=== PATIENT | female | born 1985 | race Asian ===

== ENCOUNTER 2016-08-27 15:43 | Inpatient (IN) | payer BC ==
[2016-08-27] MEDS ORDERED: FAMOTIDINE 20 MG/50 ML IVPB 50 ML IVPB ONE ×3 (16:57→19:56)
[2016-08-27] MEDS ORDERED: MAG HYDROX/AL HYDROX/SIMETH 30 ML UNIT-DOSE CUP PO ONE (16:57)
[2016-08-27] MEDS ORDERED: SODIUM CHLORIDE 1,000 ML IV STA (16:57)
--- NOTE | 2016-08-27 17:28 | PDOC ---
History of Present Illness - General History Source: Patient Exam Limitations: No Limitations <Hussain Douglass - Last Filed: 08/27/16 19:45> - General History Source: Patient Exam Limitations: No Limitations - History of Present Illness Initial Comments: 08/27/16 17:28 The patient is a 31 year old female, with no significant past medical history, who presents to the emergency department with abdominal pain and vomiting onset 3 days ago. She describes the pain as localized in the epigastric region, without radiation or modifying factors. She notes that she has been taking Tums and Zantac during this time frame with minimal relief of her symptoms. She states that she went to the ED when the pain started and was diagnosed with multiple gallstones via Ultrasound but no infection was noted. She followed up with her PMD, who referred her to a GI specialist. After consulting with the GI specialist, she was advised to come to the ED for further evaluation. She describes her vomit as nonbilious and nonbloody. She states that her appetite has been poor during this time frame and has lost 12 pounds over the last couple of days. She notes that she is currently breast feeding her 5 month old child. The patient denies chest pain, shortness of breath, headache and dizziness. Denies fever, chills, diarrhea and constipation. Denies dysuria, frequency, urgency and hematuria. 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 Agrawal <Alfonzo Johnson - Last Filed: 08/27/16 19:53> - General Chief Complaint: Pain, Acute Stated Complaint: ABD PAIN Time Seen by Provider: 08/27/16 16:35 Past History - Past Medical History Asthma: No Cancer: No Cardiac Disorders: No Diabetes: No HTN: No Seizures: No Thyroid Disease: No - Immunization History Immunization Up to Date: Yes - Psycho/Social/Smoking Cessation Hx Suicidal Ideation: No Smoking Status: No Smoking History: Never smoked Have you smoked in the past 12 months: No Number of Cigarettes Smoked Daily: 0 Hx Alcohol Use: No Drug/Substance Use Hx: No Substance Use Type: None Hx Substance Use Treatment: No <Hussain Douglass - Last Filed: 08/27/16 19:45> <Alfonzo Johnson - Last Filed: 08/27/16 19:53> - Past Medical History Allergies/Adverse Reactions: Allergies Allergy/AdvReac Type Severity Reaction Status Date / Time No Known Allergies Allergy Verified 08/27/16 15:53 Home Medications: Ambulatory Orders Vit/Iron Fumarate/FA [ Tablet] 1 each PO DAILY 03/11/16 Docusate Sodium [Colace -] 100 mg PO BID PRN #60 capsule 03/15/16 Oxycodone HCl/Acetaminophen [Percocet 5-325 mg Tablet -] 1 - 2 tab PO Q6H #30 tab MDD 6 03/15/16 Review of Systems - Review of Systems Able to Perform ROS?: Yes Comments:: 08/27/16 17:29 GENERAL/CONSTITUTIONAL: No fever or chills. No weakness. HEAD, EYES, EARS, NOSE AND THROAT: No change in vision. No ear pain or discharge. No sore throat. CARDIOVASCULAR: No chest pain or shortness of breath RESPIRATORY: No cough, wheezing, or hemoptysis. GASTROINTESTINAL: +Abdominal pain, nausea and vomiting. No diarrhea or constipation. GENITOURINARY: No dysuria, frequency, or change in urination. MUSCULOSKELETAL: No joint or muscle swelling or pain. No neck or back pain. SKIN: No rash NEUROLOGIC: No headache, vertigo, loss of consciousness, or change in strength/ sensation. ENDOCRINE: No increased thirst. No abnormal weight change HEMATOLOGIC/LYMPHATIC: No anemia, easy bleeding, or history of blood clots. ALLERGIC/IMMUNOLOGIC: No hives or skin allergy. <Alfonzo Johnson - Last Filed: 08/27/16 19:53> *Physical Exam - Vital Signs Last Vital Signs Temp Pulse Resp BP Pulse Ox 98.0 F 60 20 107/66 100 08/27/16 15:48 08/27/16 15:48 08/27/16 15:48 08/27/16 15:48 08/27/16 15:48 <Hussain Douglass - Last Filed: 08/27/16 19:45> - Vital Signs Last Vital Signs Temp Pulse Resp BP Pulse Ox 98.0 F 60 20 107/66 100 08/27/16 15:48 08/27/16 15:48 08/27/16 15:48 08/27/16 15:48 08/27/16 15:48 - Physical Exam Comments: 08/27/16 17:29 GENERAL: Awake, alert, and fully oriented, in no acute distress HEAD: No signs of trauma, normocephalic, atraumatic EYES: PERRLA, EOMI, sclera anicteric, conjunctiva clear ENT: Auricles normal inspection, hearing grossly normal, nares patent, oropharynx clear without exudates. Moist mucosa NECK: Normal ROM, supple, no lymphadenopathy, JVD, or masses LUNGS: No distress, speaks full sentences, clear to auscultation bilaterally HEART: Regular rate and rhythm, normal S1 and S2, no murmurs, rubs or gallops, peripheral pulses normal and equal bilaterally. ABDOMEN: Soft, nontender, normoactive bowel sounds. No guarding, no rebound. No masses EXTREMITIES: Normal inspection, Normal range of motion, no edema. No clubbing or cyanosis. NEUROLOGICAL: Cranial nerves II through XII grossly intact. Normal speech, normal gait, no focal sensorimotor deficits SKIN: Warm, Dry, normal turgor, no rashes or lesions noted. <Alfonzo Johnson - Last Filed: 08/27/16 19:53> ED Treatment Course - LABORATORY CBC & Chemistry Diagram: 08/27/16 17:35 08/27/16 17:35 - RADIOLOGY Radiology Studies Ordered: Category Date Time Status ABDOMEN US -LIMITED [US] Stat Ultrasound 08/27/16 16:57 Ordered <Hussain Douglass - Last Filed: 08/27/16 19:45> - LABORATORY CBC & Chemistry Diagram: 08/27/16 17:35 08/27/16 17:35 - RADIOLOGY Radiograph Interpretation: 08/27/16 18:48 Abdominal ultrasound Reviewed by: Dr. Hernandez Bradley Impression: Cholelithiasis <Alfonzo Johnson - Last Filed: 08/27/16 19:53> Medical Decision Making - Medical Decision Making 08/27/16 17:34 A portion of this note was documented by scribe services under my direction. I have reviewed the details of the note, within reason, and agree with the documentation with the following case summary and management plan written by me. Patient treated in the ED. Nursing notes are reviewed and incorporated into the medical decision-making. Vital signs reviewed. Peripheral IV access obtained by the nurse, laboratory studies are drawn and sent, reviewed and interpreted by myself. Vital Signs Temp Pulse Resp BP Pulse Ox 98.0 F 60 20 107/66 100 08/27/16 15:48 08/27/16 15:48 08/27/16 15:48 08/27/16 15:48 08/27/16 15:48 31-year-old female with no past medical history presents to the emergency department for persistent upper abdominal pain. The patient reports 3 days ago, she developed this severe epigastric pain with associated nausea and vomiting and poor appetite. The patient was seen at [facility] where she had an EKG, troponin, blood work and ultrasound performed. Her ultrasound demonstrated multiple gallstones but not acute cholecystitis. Patient is discharged as gastritis. Patient has been taking perpetual H2-blockers and PPIs and Maalox with no relief. Patient reports inability to tolerate by mouth persistent vomiting. Patient has seen her PMD referred her to a die repair machinist Dr. Agrawal. Dr. Agrawal had a value the patient and sent the patient to the ER for further evaluation. Differential includes again acute cholecystitis, duodenal or gastric ulcer, gastritis, esophageal reflux. We'll consult Dr. Agrawal once results return. 08/27/16 19:46 CBC, BMP 08/27/16 17:35 08/27/16 17:35 CMP Sodium 140 mmol/L (136-145) 08/27/16 17:35 Potassium 4.4 mmol/L (3.5-5.1) 08/27/16 17:35 Chloride 103 mmol/L (98-107) 08/27/16 17:35 Carbon Dioxide 27 mmol/L (21-32) 08/27/16 17:35 Anion Gap 10 (8-16) 08/27/16 17:35 BUN 5 mg/dL (7-18) L 08/27/16 17:35 Creatinine 0.7 mg/dL (0.55-1.02) D 08/27/16 17:35 Creat Clearance w eGFR > 60 (>60) 08/27/16 17:35 Random Glucose 82 mg/dL (74-106) 08/27/16 17:35 Calcium 9.1 mg/dL (8.5-10.1) 08/27/16 17:35 Total Bilirubin 0.9 mg/dL (0.2-1.0) D 08/27/16 17:35 AST 144 U/L (15-37) H D 08/27/16 17:35 ALT 185 U/L (12-78) H D 08/27/16 17:35 Alkaline Phosphatase 156 U/L (45-117) H D 08/27/16 17:35 Creatine Kinase 164 IU/L (26-192) 08/27/16 17:35 CK-MB (CK-2) < 1.000 ng/ml (0.5-3.6) 08/27/16 17:35 Troponin I < 0.02 ng/ml (0.00-0.05) 08/27/16 17:35 Total Protein 7.9 g/dl (6.4-8.2) 08/27/16 17:35 Albumin 4.0 g/dl (3.4-5.0) 08/27/16 17:35 Lipase 99 U/L (73-393) 08/27/16 17:35 Serum , Qual Negative 08/27/16 17:35 LFTs are now elevated. Ultrasound was reviewed. Demonstrates cholelithiasis but no acute cholecystitis. Common bile duct is normal. However, given elevated LFTs , or as her paperwork from [facility] demonstrated LFTs in the 70s, choledocholithiasis should be concerning. Case was discussed with Dr. Agrawal who will follow up with the patient as an inpatient. Case discussed with Dr. Ambrosio which is the patient to medical surgical admission for rule out choledocholithiasis. Case discussed in detail with admitting physician including history, physical exam and ancillary studies. Admitting physician has assumed care for the patient, will follow all pending diagnostics and will complete the evaluation and treatment. <Hussain Douglass - Last Filed: 08/27/16 19:45> - Medical Decision Making 08/27/16 19:45 Dr. Agrawal was called regarding the patient at 7:15pm Dr. Agrawal was consulted regarding the patient at 7:16pm [phone] <Alfonzo Johnson - Last Filed: 08/27/16 19:53> *DC/Admit/Observation/Transfer - Discharge Dispostion Admit: Yes <Hussain Douglass - Last Filed: 08/27/16 19:45> - Attestations Scribe Attestion: 08/27/16 17:32 Documentation prepared by Alfonzo Johnson, acting as medical billing service for Hussain Douglass MD <Alfonzo Johnson - Last Filed: 08/27/16 19:53> Diagnosis at time of Disposition: Elevated LFTs Cholelithiasis Qualifiers: Cholelithiasis location: other site Biliary obstruction: without biliary obstruction Qualified Code(s): K80.80 - Other cholelithiasis without obstruction - Referrals Referrals: Brannon Hurst MD [Primary Care Provider] -
[2016-08-27] MEDS ORDERED: MAG HYDROX/AL HYDROX/SIMETH 30 ML UNIT-DOSE CUP ONE (17:39)
[2016-08-27 17:46] LABS: BASOPHIL 0.6 % (0-2.0); EOSINOPHIL 1.1 % (0-4.5); MCH 29.4 pg (25.7-33.7); MCHC 33.5 g/dl (32.0-36.0); MEAN CELL VOLUME 87.8 fl (80-96); MEAN PLT VOLUME 8.3 fl (7.5-11.1); NEUTROPHILS 70.7 % (42.8-82.8); PLATELET COUNT 313 K/MM3 (134-434); RDW 13.3 % (11.6-15.6); WHITE BLOOD COUNT 7.8 K/mm3 (4.0-10.0)
[2016-08-27 18:03] LABS: URINE APPEARANCE CLEAR; URINE BILIRUBIN NEGATIVE (NEGATIVE); URINE BLOOD NEGATIVE (NEGATIVE); URINE COLOR YELLOW; URINE GLUCOSE (UA) NEGATIVE (NEGATIVE); URINE KETONE NEGATIVE (NEGATIVE); URINE LEUK ESTERASE NEGATIVE (NEGATIVE); URINE NITRITE NEGATIVE (NEGATIVE); URINE PROTEIN NEGATIVE (NEGATIVE); URINE UROBILINOGEN NEGATIVE E.U./dl (0.2-1.0)
[2016-08-27 18:17] LABS: ANION GAP 10 (8-16); BILIRUBIN,TOTAL 0.9 mg/dL (0.2-1.0); CALCIUM 9.1 mg/dL (8.5-10.1); CO2 27 mmol/L (21-32); CREATININE 0.7 mg/dL (0.55-1.02); GLUCOSE,RANDOM 82 mg/dL (74-106); SGOT/AST 144 U/L (15-37); SGPT/ALT 185 U/L (12-78); TOT PROT 7.9 g/dl (6.4-8.2)
[2016-08-27 18:19] LABS: ALK PHOS 156 U/L (45-117); TROPONIN I < 0.02 ng/ml (0.00-0.05)
--- NOTE | 2016-08-27 19:43 | PN ---
<Desire Cummings - Last Filed: 08/27/16 23:13> Teaching Attending Note ATTENDING PHYSICIAN STATEMENT I saw and evaluated the patient. I reviewed the resident's note and discussed the case with the resident. I agree with the resident's findings and plan as documented. SUBJECTIVE: 31 yo F presents with abdominal pain and vomiting for 3 days. Patient reports the abdominal pain is in her epigastric region and does not radiate. Patient was recently diagnosed with gallstones and was told to report to [place] ED from her GI specialist. Patient states her pain worsens about an hour after she eats and reports that she forced herself to throw up to relieve her abdominal pain. Patient denies blood in vomit and blood in stool. Patient notes she had a 5 months ago and is still . Pt reports she was unable to complete MRI due to claustrophobia. Denies: chest pain, shortness of breath, headache and dizziness. Denies fever, chills, diarrhea and constipation. Denies dysuria, frequency, urgency and hematuria. 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 Agrawal OBJECTIVE: Last Vital Signs Temp Pulse Resp BP Pulse Ox 98.0 F 60 20 107/66 100 08/27/16 15:48 08/27/16 15:48 08/27/16 15:48 08/27/16 15:48 08/27/16 15:48 GENERAL: Awake, alert, and fully oriented, in no acute distress HEENT: Atraumatic. PERRLA, EOMI. Moist mucosa. No JVD LUNGS: No distress, speaks full sentences, clear to auscultation bilaterally HEART: Regular rate and rhythm, normal S1 and S2, no murmurs, rubs or gallops, peripheral pulses normal and equal bilaterally. ABDOMEN: Soft, nontender, normoactive bowel sounds. No guarding, no rebound. No masses. McBurney sign negative Colbert sign negative. EXTREMITIES: Normal inspection, Normal range of motion, no edema. No clubbing or cyanosis. NEUROLOGICAL: Cranial nerves II through XII grossly intact. Normal speech, no focal sensorimotor deficits SKIN: Warm, Dry, normal turgor, no rashes or lesions noted. CBCD WBC 7.8 K/mm3 (4.0-10.0) 08/27/16 17:35 RBC 4.53 M/mm3 (3.60-5.2) D 08/27/16 17:35 Hgb 13.3 GM/dL (10.7-15.3) D 08/27/16 17:35 Hct 39.7 % (32.4-45.2) D 08/27/16 17:35 MCV 87.8 fl (80-96) 08/27/16 17:35 MCHC 33.5 g/dl (32.0-36.0) 08/27/16 17:35 RDW 13.3 % (11.6-15.6) 08/27/16 17:35 Plt Count 313 K/MM3 (134-434) D 08/27/16 17:35 MPV 8.3 fl (7.5-11.1) 08/27/16 17:35 CMP Sodium 140 mmol/L (136-145) 08/27/16 17:35 Potassium 4.4 mmol/L (3.5-5.1) 08/27/16 17:35 Chloride 103 mmol/L (98-107) 08/27/16 17:35 Carbon Dioxide 27 mmol/L (21-32) 08/27/16 17:35 Anion Gap 10 (8-16) 08/27/16 17:35 BUN 5 mg/dL (7-18) L 08/27/16 17:35 Creatinine 0.7 mg/dL (0.55-1.02) D 08/27/16 17:35 Creat Clearance w eGFR > 60 (>60) 08/27/16 17:35 Calcium 9.1 mg/dL (8.5-10.1) 08/27/16 17:35 Total Bilirubin 0.9 mg/dL (0.2-1.0) D 08/27/16 17:35 AST 144 U/L (15-37) H D 08/27/16 17:35 ALT 185 U/L (12-78) H D 08/27/16 17:35 Alkaline Phosphatase 156 U/L (45-117) H D 08/27/16 17:35 Total Protein 7.9 g/dl (6.4-8.2) 08/27/16 17:35 Albumin 4.0 g/dl (3.4-5.0) 08/27/16 17:35 Documentation prepared by Desire Cummings, acting as medical terminologist for Anne Marie Ambrosio M.D. <Anne Marie Ambrosio - Last Filed: 08/28/16 03:26> Teaching Attending Note Name of Resident: Matt Mares Problem List - Problems (1) Abdominal pain Assessment/Plan: R/o Acute Cholecystitis and choledocholithiasis GI consult Dr Agrawal Protonix 40mg ivpb daily Code(s): R10.9 - UNSPECIFIED ABDOMINAL PAIN (2) Cholelithiasis Assessment/Plan: NPO IVF MRCP, patient unable to complete without some sedation Fentanyl 0.5mg/kg and metoprolol 2.5mg IVPB before procedure. Patient currently breast feeding and so choice of anxiolytics limited. Tylenol IVPB or suppository for severe pain Surgery consult Dr Lloyd Code(s): K80.20 - CALCULUS OF GALLBLADDER W/O CHOLECYSTITIS W/O OBSTRUCTION Qualifiers: Cholelithiasis location: other site Biliary obstruction: without biliary obstruction Qualified Code(s): K80.80 - Other cholelithiasis without obstruction
--- NOTE | 2016-08-27 19:51 | CONSULT ---
Consult Consult Specialty:: Surgery Reason for Consultation:: cholelithiasis - History of Present Illness Chief Complaint: abdominal pain History of Present Illness: 31 y/o F w/no PMH presents to ER after being sent in by Dr. Agrawal for further evaluation of abdominal pain. Pt began to have abdominal pain 1.5 weeks ago that was brought on by eating. After 30 min to 1 hour after eating pt would get severe mid sternal chest pain. At this time she went to ER at [facility] where she was found to cholelithiasis and no cardiac issues. She then saw her PCP Dr. Hurst after the hospital visit who recommended she see Dr. Agrawal. One week had passed in b/w her PCP appointment and Dr. Agrawal's appointment in which she continued to have the same symptoms of pain in epigastric/sternal pain after eating. Day after seeing Dr. Agrawal she came into ER as recommended by Dr. Agrawal. Pt has been vomiting after eating, no blood, mostly food products and has had a 12 pound weight loss in 1-1.5 weeks due to vomiting and poor appetite. She states she had some severe epigastric pain in the last 5-6 months but it was relieved with TUMS or zantac. This time pain was not relieved with TUMS or zantac. Pt also describes the pain as radiating to her L back from her sternum after eating. She denies fevers, chills , SOB, dysuria, generalized swelling, diarrhea. She is currently her 5 month old baby. - History Source History Provided By: Patient - Past Medical History Hepatobiliary: Yes: Cholelithiasis ...LMP: 08/23/16 - Past Surgical History Past Surgical History: Yes: - Alcohol/Substance Use Hx Alcohol Use: No History of Substance Use: reports: None - Smoking History Smoking history: Never smoked Have you smoked in the past 12 months: No Aproximately how many cigarettes per day: 0 - Social History History of Recent Travel: No Home Medications - Allergies Allergies/Adverse Reactions: Allergies Allergy/AdvReac Type Severity Reaction Status Date / Time No Known Allergies Allergy Verified 08/27/16 15:53 - Home Medications Home Medications: Ambulatory Orders [id number]/Iron Fumarate/FA/Dss [ 19 Tablet] 1 each PO DAILY 08/28/16 Review of Systems - Review of Systems Cardiovascular: reports: No Symptoms Respiratory: reports: No Symptoms Gastrointestinal: reports: Abdominal Pain Pain Intensity: 4 Physical Exam Vital Signs: Vital Signs Temperature 98.0 F 08/27/16 15:48 Pulse Rate 60 08/27/16 15:48 Respiratory Rate 20 08/27/16 15:48 Blood Pressure 107/66 08/27/16 15:48 O2 Sat by Pulse Oximetry (%) 100 08/27/16 15:48 Constitutional: Yes: Well Nourished Eyes: Yes: Conjunctiva Clear HENT: Yes: Normocephalic Neck: Yes: Supple Cardiovascular: Yes: Regular Rate and Rhythm Respiratory: Yes: CTA Bilaterally Gastrointestinal: Yes: Soft, Tenderness, Epigastrium (mild) ...Rectal Exam: Yes: Deferred Renal/: Yes: WNL Extremities: Yes: WNL Neurological: Yes: Alert, Oriented Labs: CBC, BMP 08/27/16 17:35 08/27/16 17:35 Abnormal Lab Results 08/27/16 08/27/16 08/28/16 17:35 20:14 06:00 INR 1.15 H PTT (Actin FS) 41.6 H D Chloride BUN 5 L Random Glucose AST 144 H D ALT 185 H D Alkaline Phosphatase 156 H D 08/28/16 06:00 INR PTT (Actin FS) Chloride 108 H BUN 6 L Random Glucose 67 L AST 78 H D ALT 174 H Alkaline Phosphatase 153 H Imaging - Results Ultrasound: Report Reviewed, Image Reviewed Assessment/Plan Low grade acute cholecystitis with cholelithiasis, possibel choledocholithiasis Agree with MRCP to r/o CBC stone Recommend cholecystectomy prior to discharge.
[2016-08-27 20:41] LABS: INR 1.12 (0.82-1.09); PROTHROMBIN TIME (PATIENT) 12.3 SEC (9.98-11.88)
[2016-08-27 20:43] LABS: ACTIVATED PTT 41.6 SECONDS (26.9-34.4)
--- NOTE | 2016-08-27 22:12 | HP ---
CHIEF COMPLAINT: Cholelithiasis PCP: Dr. Hurst; GI: Dr. Agrawal HISTORY OF PRESENT ILLNESS: 31 y/o F w/no PMH presents to ER after being sent in by Dr. Agrawal for further evaluation of abdominal pain. Pt began to have abdominal pain 1.5 weeks ago that was brought on by eating. After 30 min to 1 hour after eating pt would get severe mid sternal chest pain. At this time she went to ER at [facility] where she was found to cholelithiasis and no cardiac issues. She then saw her PCP Dr. Hurst after the hospital visit who recommended she see Dr. Agrawal. One week had passed in b/w her PCP appointment and Dr. Agrawal's appointment in which she continued to have the same symptoms of pain in epigastric/sternal pain after eating. Day after seeing Dr. Agrawal she came into ER as recommended by Dr. Agrawal. Pt has been vomiting after eating, no blood, mostly food products and has had a 12 pound weight loss in 1-1.5 weeks due to vomiting and poor appetite. She states she had some severe epigastric pain in the last 5-6 months but it was relieved with TUMS or zantac. This time pain was not relieved with TUMS or zantac. Pt also describes the pain as radiating to her L back from her sternum after eating. She denies fevers, chills , SOB, dysuria, generalized swelling, diarrhea. She is currently her 5 month old baby. Pt was set for MRCP but due to claustrophobia was unable to be done. She states that will try fentanyl and lopressor in AM and try MRCP again. Pt was told to discard breast milk for the next 24 hours after receiving meds. ER course was notable for: (1) pepcid, mylanta (2) (3) PAST MEDICAL HISTORY: no PMH PAST SURGICAL HISTORY: x2 Social History: Smoking: denies Alcohol: denies Drugs: denies Family History: Mother, Father both "hyperglycemic" Allergies No Known Allergies Allergy (Verified 08/27/16 15:53) HOME MEDICATIONS: Home Medications Medication Instructions Recorded Vit/Iron Fumarate/FA 1 each PO DAILY 03/11/16 [ Tablet] Docusate Sodium [Colace -] 100 mg PO BID PRN #60 capsule 03/15/16 Oxycodone HCl/Acetaminophen 1 - 2 tab PO Q6H #30 tab MDD 6 03/15/16 [Percocet 5-325 mg Tablet -] REVIEW OF SYSTEMS CONSTITUTIONAL: weight loss, loss of appetite Absent: fever, chills, diaphoresis, generalized weakness, malaise HEENT: Absent: rhinorrhea, nasal congestion, throat pain, throat swelling, difficulty swallowing, mouth swelling, ear pain, eye pain, visual changes CARDIOVASCULAR: sternal pain Absent: syncope, palpitations, irregular heart rate, lightheadedness, peripheral edema RESPIRATORY: Absent: cough, shortness of breath, dyspnea with exertion, orthopnea, wheezing, stridor, hemoptysis GASTROINTESTINAL: abd pain, nausea, vomiting Absent: abdominal distension, nausea, constipation, melena, hematochezia GENITOURINARY: Absent: dysuria, frequency, urgency, hesitancy, hematuria, flank pain, genital pain MUSCULOSKELETAL: Absent: myalgia, arthralgia, joint swelling, back pain, neck pain SKIN: Absent: rash, itching, pallor HEMATOLOGIC/IMMUNOLOGIC: Absent: easy bleeding, easy bruising, lymphadenopathy, frequent infections ENDOCRINE: Absent: unexplained weight gain, unexplained weight loss, heat intolerance, cold intolerance NEUROLOGIC: Absent: headache, focal weakness or paresthesias, dizziness, unsteady gait, seizure, mental status changes, bladder or bowel incontinence PSYCHIATRIC: Absent: anxiety, depression, suicidal or homicidal ideation, hallucinations. PHYSICAL EXAMINATION GENERAL: Awake, alert, and fully oriented, in no acute distress. HEAD: Normal with no signs of trauma. EYES: extraocular movements intact, sclera anicteric, conjunctiva clear. No lid lag. EARS, NOSE, THROAT: Ears normal, nares patent, Moist mucous membranes. NECK: Normal range of motion, supple without lymphadenopathy, JVD, or masses. LUNGS: Breath sounds equal, clear to auscultation bilaterally. No wheezes, and no crackles. No accessory muscle use. HEART: Regular rate and rhythm, normal S1 and S2 without murmur, rub or gallop. ABDOMEN: Soft, nontender , murphys sign negative, not distended, normoactive bowel sounds, no guarding, no rebound, no masses. No hepatomegaly or splenomegaly. MUSCULOSKELETAL: Normal range of motion at all joints. No bony deformities or tenderness. No CVA tenderness. LOWER EXTREMITIES: 2+ pulses, warm, well-perfused. No calf tenderness. No peripheral edema. NEUROLOGICAL: Normal speech. Gait not observed. PSYCHIATRIC: Cooperative. Good eye contact. Appropriate mood and affect. SKIN: Warm, dry, normal turgor, no rashes or lesions noted, normal capillary refill. CBCD WBC 7.8 K/mm3 (4.0-10.0) 08/27/16 17:35 RBC 4.53 M/mm3 (3.60-5.2) D 08/27/16 17:35 Hgb 13.3 GM/dL (10.7-15.3) D 08/27/16 17:35 Hct 39.7 % (32.4-45.2) D 08/27/16 17:35 MCV 87.8 fl (80-96) 08/27/16 17:35 MCHC 33.5 g/dl (32.0-36.0) 08/27/16 17:35 RDW 13.3 % (11.6-15.6) 08/27/16 17:35 Plt Count 313 K/MM3 (134-434) D 08/27/16 17:35 MPV 8.3 fl (7.5-11.1) 08/27/16 17:35 CMP Sodium 140 mmol/L (136-145) 08/27/16 17:35 Potassium 4.4 mmol/L (3.5-5.1) 08/27/16 17:35 Chloride 103 mmol/L (98-107) 08/27/16 17:35 Carbon Dioxide 27 mmol/L (21-32) 08/27/16 17:35 Anion Gap 10 (8-16) 08/27/16 17:35 BUN 5 mg/dL (7-18) L 08/27/16 17:35 Creatinine 0.7 mg/dL (0.55-1.02) D 08/27/16 17:35 Creat Clearance w eGFR > 60 (>60) 08/27/16 17:35 Random Glucose 82 mg/dL (74-106) 08/27/16 17:35 Calcium 9.1 mg/dL (8.5-10.1) 08/27/16 17:35 Total Bilirubin 0.9 mg/dL (0.2-1.0) D 08/27/16 17:35 AST 144 U/L (15-37) H D 08/27/16 17:35 ALT 185 U/L (12-78) H D 08/27/16 17:35 Alkaline Phosphatase 156 U/L (45-117) H D 08/27/16 17:35 Total Protein 7.9 g/dl (6.4-8.2) 08/27/16 17:35 Albumin 4.0 g/dl (3.4-5.0) 08/27/16 17:35 CARDIAC ENZYMES Creatine Kinase 164 IU/L (26-192) 08/27/16 17:35 Troponin I < 0.02 ng/ml (0.00-0.05) 08/27/16 17:35 Laboratory Tests 08/27/16 08/27/16 17:35 17:35 Lipase 99 Serum , Qual Negative Urine Test Results Urine Color Yellow 08/27/16 17:35 Urine Appearance Clear 08/27/16 17:35 Urine pH 8.0 (5.0-8.0) D 08/27/16 17:35 Ur Specific [place] 1.013 (1.001-1.035) 08/27/16 17:35 Urine Protein Negative (NEGATIVE) 08/27/16 17:35 Urine Glucose (UA) Negative (NEGATIVE) 08/27/16 17:35 Urine Ketones Negative (NEGATIVE) 08/27/16 17:35 Urine Blood Negative (NEGATIVE) 08/27/16 17:35 Urine Nitrite Negative (NEGATIVE) 08/27/16 17:35 Urine Bilirubin Negative (NEGATIVE) 08/27/16 17:35 Ur Leukocyte Esterase Negative (NEGATIVE) 08/27/16 17:35 Imaging: U/S abd: 08/27/16 - Multiple small gallbladder calculi are identified. The gallbladder otherwise appears unremarkable. No pericholecystic fluid is seen. Early acute cholecystitis may not be demonstrable on sonography or CT. Active Medications Acetaminophen (Ofirmev Injection -) 1,000 mg IVPB Q6H PRN PRN Reason: FEVER OR PAIN Stop: 08/28/16 17:51 Sodium Chloride (Normal Saline -) 1,000 mls @ 100 mls/hr IV ASDIR SINAN Pantoprazole Sodium 40 mg/ (Sodium Chloride) 100 mls @ 200 mls/hr IVPB DAILY SINAN Metoprolol Tartrate (Lopressor Injection -) 2.5 mg IVPUSH ONCE ONE Stop: 08/28/16 06:01 ASSESSMENT/PLAN: 31 y/o F w/no PMH presents to ER after being sent in by Dr. Agrawal for further evaluation of abdominal pain. Found to have cholelithiasis. -Abdominal pain secondary to cholelithiasis -NS @ 100ml/hr -NPO -MRCP in AM, will give fentanyl 37.5 mcg (0.5 mcg/kg) 30-60 min before MRI ( half-life shorter than ativan, as pt wants to breastfeed) -lopressor 2.5 mg 30 min before MRI -pt has been instructed to discard breast milk for 24 hours after receiving these medications -pain control w/IV Ofirmev 1g q6h PRN -Protonix 40 mg IV qd -GI consulted (Dr. Agrawal); Surgery consulted (Dr. Venegas) -Transaminitis -elevated compared to [facility] LFTs (in 70s at that time) -secondary to cholelithiasis vs choledocholithiasis -f/u MRCP -GI consulted -DVT ppx -SCDs -FEN -NS @ 100ml/hr -electrolytes wnl -NPO -Dispo: -Admit to M/S Problem List - Problem (1) Abdominal pain Code(s): R10.9 - UNSPECIFIED ABDOMINAL PAIN (2) Cholelithiasis Code(s): K80.20 - CALCULUS OF GALLBLADDER W/O CHOLECYSTITIS W/O OBSTRUCTION Qualifiers: Cholelithiasis location: other site Biliary obstruction: without biliary obstruction Qualified Code(s): K80.80 - Other cholelithiasis without obstruction (3) Elevated LFTs Code(s): R94.5 - ABNORMAL RESULTS OF LIVER FUNCTION STUDIES Visit type - Emergency Visit Emergency Visit: Yes ED Registration Date: 08/27/16 Care time: The patient presented to the Emergency Department on the above date and was hospitalized for further evaluation of their emergent condition. - New Patient This patient is new to me today: Yes Date on this admission: 08/28/16 - Critical Care Critical Care patient: No
[2016-08-27] MEDS ORDERED: ACETAMINOPHEN 1000 MG/100 ML VIAL (NON FORMULARY) IVPB PRN (23:50)
[2016-08-28] MEDS ORDERED: SODIUM CHLORIDE 1,000 ML IV SCH (02:00)
[2016-08-28] MEDS ORDERED: METOPROLOL TARTRATE 5 MG/5 ML VIAL IVPUSH ONE (06:00)
[2016-08-28 06:55] LABS: BASOPHIL 0.6 % (0-2.0); EOSINOPHIL 3.1 % (0-4.5); MCH 29.6 pg (25.7-33.7); MCHC 33.2 g/dl (32.0-36.0); MEAN CELL VOLUME 89.1 fl (80-96); MEAN PLT VOLUME 8.4 fl (7.5-11.1); NEUTROPHILS 59.2 % (42.8-82.8); PLATELET COUNT 269 K/MM3 (134-434)
[2016-08-28 06:58] LABS: INR 1.15 (0.82-1.09); PROTHROMBIN TIME (PATIENT) 12.7 SEC (9.98-11.88)
[2016-08-28 07:34] LABS: ALBUMIN 3.7 g/dl (3.4-5.0); ALK PHOS 153 U/L (45-117); ANION GAP 9 (8-16); BILIRUBIN,TOTAL 0.4 mg/dL (0.2-1.0); CALCIUM 8.6 mg/dL (8.5-10.1); CO2 26 mmol/L (21-32); CREATININE 0.7 mg/dL (0.55-1.02); GLUCOSE,RANDOM 67 mg/dL (74-106); SGOT/AST 78 U/L (15-37); SGPT/ALT 174 U/L (12-78); TOT PROT 7.4 g/dl (6.4-8.2)
[2016-08-28] MEDS ORDERED: PANTOPRAZOLE SODIUM 40 MG in SODIUM CHLORIDE 100 ML IVPB SCH (10:00)
[2016-08-28 10:55] VITALS: BMI 30.7
[2016-08-28] MEDS ORDERED: PANTOPRAZOLE SODIUM 40 MG VIAL ONE (10:59)
--- NOTE | 2016-08-28 14:03 | MSN ---
Progress Note (short form) - Note Progress Note: Saw patient this AM. Patient complained of no new events overnight. Patient is resting comfortably in bed with no more midline chest pain. Patient also states that she does not feel nauseous anymore. Patient denies F/C, N/V, shortness of breath, chest pain, RUQ, constipation, diarrhea. Labs show elevated ALT, AST, and Alkaline Phosphatase. AST has decreased from 144 to 78. Patient is currently NPO and is waiting for an MRCP to be done to further determine if patient has possible choledocolithiasis. One hour before MRCP, patient will be given fentanyl and lopressor to decrease anxiety. Ultrasound showed chloelithiasis with no cholecystitis. GI and surgery on board. Continue to monitor patient's labs and vitals on med/surg floor. Current Medications Generic Name Dose Route Start Last Admin Trade Name Freq PRN Reason Stop Dose Admin Acetaminophen 1,000 mg 08/27/16 23:50 Ofirmev Injection - IVPB 08/28/16 17:51 Q6H PRN FEVER OR PAIN Sodium Chloride 1,000 mls @ 100 mls/hr 08/28/16 02:00 08/28/16 04:15 Normal Saline - IV 100 mls/hr ASDIR SINAN Administration Pantoprazole Sodium 40 mg/ 100 mls @ 200 mls/hr 08/28/16 10:00 08/28/16 11:22 Sodium Chloride IVPB 200 mls/hr DAILY SINAN Administration Vital Signs Period Temp Pulse Resp BP Sys/Deluca Pulse Ox Last 24 Hr 98.0 F-98.2 F 53-86 16-20 107-133/65-74 98-100 PHYSICAL EXAM GENERAL: Patient alert and oriented. In no apparent distress EYES: PERRLA, EOM intact, conjunctiva clear bilaterally ENT: Ears normal, nares patent, no signs of trauma NECK: Trachea midline, no JVD HEART: Regular rate, rhythm. +S1, S2, no murmurs, gallops LUNGS: Equal breath sounds bilaterally, no wheezes, rhonchi ABDOMEN: Soft, nontender, normoactive bowel sounds in all four quadrants. No pain on light or deep palpation. 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, gait not observed EXTREMITIES: 2+ pulses bilaterally, warm, nontender, well perfused Laboratory Results - last 24 hr 08/27/16 08/27/16 08/27/16 17:35 17:35 17:35 WBC 7.8 RBC 4.53 D Hgb 13.3 D Hct 39.7 D MCV 87.8 MCHC 33.5 RDW 13.3 Plt Count 313 D MPV 8.3 Neutrophils % 70.7 Lymphocytes % 20.9 Monocytes % 6.7 Eosinophils % 1.1 Basophils % 0.6 INR PTT (Actin FS) Sodium 140 Potassium 4.4 Chloride 103 Carbon Dioxide 27 Anion Gap 10 BUN 5 L Creatinine 0.7 D Creat Clearance w eGFR > 60 Random Glucose 82 Calcium 9.1 Total Bilirubin 0.9 D AST 144 H D ALT 185 H D Alkaline Phosphatase 156 H D Creatine Kinase 164 CK-MB (CK-2) < 1.000 Troponin I < 0.02 Total Protein 7.9 Albumin 4.0 Lipase 99 Serum , Qual Negative Urine Color Yellow Urine Appearance Clear Urine pH 8.0 D Ur Specific [place] 1.013 Urine Protein Negative Urine Glucose (UA) Negative Urine Ketones Negative Urine Blood Negative Urine Nitrite Negative Urine Bilirubin Negative Urine Urobilinogen Negative Ur Leukocyte Esterase Negative Blood Type Antibody Screen 08/27/16 08/27/16 08/28/16 20:14 20:14 06:00 WBC 6.0 RBC 4.43 Hgb 13.1 Hct 39.5 MCV 89.1 MCHC 33.2 RDW 13.0 Plt Count 269 MPV 8.4 Neutrophils % 59.2 Lymphocytes % 30.2 D Monocytes % 6.9 Eosinophils % 3.1 D Basophils % 0.6 INR 1.12 PTT (Actin FS) 41.6 H D Sodium Potassium Chloride Carbon Dioxide Anion Gap BUN Creatinine Creat Clearance w eGFR Random Glucose Calcium Total Bilirubin AST ALT Alkaline Phosphatase Creatine Kinase CK-MB (CK-2) Troponin I Total Protein Albumin Lipase Serum , Qual Urine Color Urine Appearance Urine pH Ur Specific [place] Urine Protein Urine Glucose (UA) Urine Ketones Urine Blood Urine Nitrite Urine Bilirubin Urine Urobilinogen Ur Leukocyte Esterase Blood Type O POSITIVE Antibody Screen Negative 08/28/16 08/28/16 06:00 06:00 WBC RBC Hgb Hct MCV MCHC RDW Plt Count MPV Neutrophils % Lymphocytes % Monocytes % Eosinophils % Basophils % INR 1.15 H PTT (Actin FS) Sodium 143 Potassium 4.3 Chloride 108 H Carbon Dioxide 26 Anion Gap 9 BUN 6 L Creatinine 0.7 Creat Clearance w eGFR > 60 Random Glucose 67 L Calcium 8.6 Total Bilirubin 0.4 D AST 78 H D ALT 174 H Alkaline Phosphatase 153 H Creatine Kinase CK-MB (CK-2) Troponin I Total Protein 7.4 Albumin 3.7 Lipase Serum , Qual Urine Color Urine Appearance Urine pH Ur Specific [place] Urine Protein Urine Glucose (UA) Urine Ketones Urine Blood Urine Nitrite Urine Bilirubin Urine Urobilinogen Ur Leukocyte Esterase Blood Type Antibody Screen IMAGING Right upper quadrant abdomen ultrasound (08/27/16): Multiple small gallbladder calculi are identified. The gallbladder otherwise appears unremarkable. No pericholecystic fluid is seen. Early acute cholecystitis may not be demonstrable on sonography or CT. The common bile duct diameter appears w/i normal limits measuring 0.4 cm. No gross intraductal calculus is noted. MRCP (08/28/16): Results pending ASSESSMENT AND PLAN 31 y/o F with no PMHx presenting to the ER with abdominal and nausea starting three days ago. Admitted for abdominal pain secondary to cholelithiasis 1. Abdominal pain secondary to cholelithiasis -NPO -IV Fluids @ 100 cc/hr -Pain control with IV Ofirmev -Protonix 40 mg IV qd -GI, surgery on board -MRCP to show if patient has possible concomitant choledocolithiasis 2. Transamnitis -AST down from 144 (4/6) to 78 -ALT down from 185 (4/6) to 174 -Alkaline down from 156 (4/6) to 153 -Secondary to possible choledocolithiasis -MRCP -GI f/u 3. FEN -NPO -IV Fluids @ 100 cc/hr -lytes wnl 4. DVT Prophylaxis -SCDs Dispo: Monitor in med/surg
--- NOTE | 2016-08-28 15:33 | PN ---
Addendum entered and electronically signed by Darcie Antoine RES 08/28/16 17 :23: Review of the MRCP did not show stone in bile duct, although according to radiologist patient was breathing a lot and ampulla not clearly visible. Will speak to GI regarding this and the next step. Patient tansaminases are trending down, she may have passed stone. Will repeat in the am. Patient states that the reason she came her was to " get an endoscopy", I will speak with GI regarding this as well. Original Note: Physical Exam: SUBJECTIVE: Patient seen and examined, currently comfortable, no fever, chest pain, epigastric pain, sob, CHO, n,v. OBJECTIVE: Vital Signs Period Temp Pulse Resp BP Sys/Deluca Pulse Ox Last 24 Hr 98.1 F-98.2 F 53-86 16-18 114-133/65-74 98-99 GENERAL: The patient is awake, alert, and fully oriented, in no acute distress. HEAD: Normal with no signs of trauma. EYES: PERRL, extraocular movements intact, sclera anicteric, conjunctiva clear. No ptosis. ENT: Ears normal, nares patent, oropharynx clear without exudates, moist mucous membranes. NECK: Trachea midline, full range of motion, supple. LUNGS: Breath sounds equal, clear to auscultation bilaterally, no wheezes, no crackles, no accessory muscle use. HEART: Regular rate and rhythm, S1, S2 without murmur, rub or gallop. ABDOMEN: Soft, nontender, nondistended, normoactive bowel sounds, no guarding, no rebound, no hepatosplenomegaly, no masses. Colbert negative EXTREMITIES: 2+ pulses, warm, well-perfused, no edema. NEUROLOGICAL: Cranial nerves II through XII grossly intact. Normal speech, gait not observed. PSYCH: Normal mood, normal affect. SKIN: Warm, dry, normal turgor, no rashes or lesions noted Laboratory Results - last 24 hr 08/28/16 08/28/16 08/28/16 06:00 06:00 06:00 WBC 6.0 RBC 4.43 Hgb 13.1 Hct 39.5 MCV 89.1 MCHC 33.2 RDW 13.0 Plt Count 269 MPV 8.4 Neutrophils % 59.2 Lymphocytes % 30.2 D Monocytes % 6.9 Eosinophils % 3.1 D Basophils % 0.6 INR 1.15 H Sodium 143 Potassium 4.3 Chloride 108 H Carbon Dioxide 26 Anion Gap 9 BUN 6 L Creatinine 0.7 Creat Clearance w eGFR > 60 Random Glucose 67 L Calcium 8.6 Total Bilirubin 0.4 D AST 78 H D ALT 174 H Alkaline Phosphatase 153 H Total Protein 7.4 Albumin 3.7 Active Medications Generic Name Dose Route Start Last Admin Trade Name Freq PRN Reason Stop Dose Admin Acetaminophen 1,000 mg 08/27/16 23:50 Ofirmev Injection - IVPB 08/28/16 17:51 Q6H PRN FEVER OR PAIN Sodium Chloride 1,000 mls @ 100 mls/hr 08/28/16 02:00 08/28/16 04:15 Normal Saline - IV 100 mls/hr ASDIR SINAN Administration Pantoprazole Sodium 40 mg/ 100 mls @ 200 mls/hr 08/28/16 10:00 08/28/16 11:22 Sodium Chloride IVPB 200 mls/hr DAILY SINAN Administration ASSESSMENT/PLAN: 31 year old female PMHx gallstones; s/p C sec 5 mo ago, currently breast feeding ;presents with n,v, abdominal pain, sent over by her GI doctor for worsening of her condition. #chest pain/epigastric pain secondary to cholelithiasis/choledolithiasis vs GERD -abdominal US showing cholelithiasis; no cholecystitis -MRCP today; r/o duct stone; if negative fro stone; would likely need cholecystectomy -IVF; pain, control, protonix -GI consult Dr. Agrawal -sx consult #transaminitis -elevated secondary to cholelithiasis vs choledocholithiasis FEN: Fluids:NS Electrolytes:wnl Diet: npo VTE prophylaxis: ambulating GI prophylaxis:protonix Disposition: await mrcp; possible sx Visit type - Emergency Visit Emergency Visit: Yes ED Registration Date: 08/27/16 Care time: The patient presented to the Emergency Department on the above date and was hospitalized for further evaluation of their emergent condition. - New Patient This patient is new to me today: Yes Date on this admission: 08/28/16 - Critical Care Critical Care patient: No
--- NOTE | 2016-08-28 18:07 | CON.GI ---
Consult Consult Specialty:: gastroenterology Referred by:: Dr Hurst/ hospitalist - History of Present Illness History of Present Illness: 31 y/o female with 1 month history of epigastric pain associated with early satiety, fatty food intolerance, atypical chest pain, partially relieved by TUMS was admitted for further evaluation and management. Tonight patient is asymptomatic. Abdominal ultrasound and MRI fail to reveal cholecystitis. She denies nausea, vomiting, fever and unexplained weight loss. MRI--normal CBD associated with mildly elevated liver enzymes. - History Source History Provided By: Patient - Past Medical History Hepatobiliary: Yes: Cholelithiasis ...LMP: 08/23/16 ...LMP Comment: GAVE IN FEBRUARY/ ...: No - Past Surgical History Past Surgical History: Yes: - Alcohol/Substance Use Hx Alcohol Use: No History of Substance Use: reports: None - Smoking History Smoking history: Never smoked Have you smoked in the past 12 months: No Aproximately how many cigarettes per day: 0 - Social History History of Recent Travel: No Home Medications - Allergies Allergies/Adverse Reactions: Allergies Allergy/AdvReac Type Severity Reaction Status Date / Time No Known Allergies Allergy Verified 08/27/16 15:53 - Home Medications Home Medications: Ambulatory Orders [id number]/Iron Fumarate/FA/Dss [ 19 Tablet] 1 each PO DAILY 08/28/16 Review of Systems - Review of Systems Constitutional: denies: Fever Eyes: denies: Blurred Vision HENT: denies: Difficult Swallowing Neck: denies: Decreased ROM Cardiovascular: denies: Edema Respiratory: denies: Exercise Intolerance Genitourinary: denies: Burning Physical Exam-GI Vital Signs: Vital Signs Temperature 98.2 F 08/28/16 10:23 Pulse Rate 80 08/28/16 16:34 Respiratory Rate 18 08/28/16 16:34 Blood Pressure 143/81 08/28/16 16:34 O2 Sat by Pulse Oximetry (%) 100 08/28/16 16:34 Constitutional: Yes: Well Nourished Eyes: Yes: Conjunctiva Clear HENT: Yes: Atraumatic Neck: Yes: Supple Cardiovascular: Yes: Regular Rate and Rhythm Respiratory: Yes: CTA Bilaterally ...Palpate: Yes: Soft. No: Firm/Rigid, Guarding, Hepatomegaly, Mass, Pulsatile Mass, Splenomegaly, Tenderness Labs: CBC, BMP 08/28/16 06:00 08/28/16 06:00 INR, PTT INR 1.15 (0.82-1.09) H 08/28/16 06:00 Problem List - Problems (1) Cholelithiasis Assessment/Plan: associated with possible chronic cholecystitis vs biliray colic R> HIDA scan with EF(r/o gallbladder dyskenisia) Code(s): K80.20 - CALCULUS OF GALLBLADDER W/O CHOLECYSTITIS W/O OBSTRUCTION Qualifiers: Cholelithiasis location: other site Biliary obstruction: without biliary obstruction Qualified Code(s): K80.80 - Other cholelithiasis without obstruction (2) Elevated LFTs Assessment/Plan: etiology unclear doubt secondary to CBD stone Code(s): R94.5 - ABNORMAL RESULTS OF LIVER FUNCTION STUDIES (3) Epigastric pain Assessment/Plan: r/o peptic ulcer disease vs delay gastric emptying R>Protonix 40mg every 12 hours Reglan IV Code(s): R10.13 - EPIGASTRIC PAIN
--- NOTE | 2016-08-28 18:35 | PN ---
Teaching Attending Note Name of Resident: Darcie Antoine ATTENDING PHYSICIAN STATEMENT I saw and evaluated the patient. I reviewed the resident's note and discussed the case with the resident. I agree with the resident's findings and plan as documented. SUBJECTIVE:states she had no recurrent pain since admission to the hospital. similar presentation to her previous admission. states pain is epigastric with radiation to the back. denies Cp, SOB,fever, chills, N/V/C/D currently OBJECTIVE: Last Vital Signs Temp Pulse Resp BP Pulse Ox 98.2 F 80 18 143/81 100 08/28/16 10:23 08/28/16 16:34 08/28/16 16:34 08/28/16 16:34 08/28/16 16:34 General Abdomen soft NT/ND no rebound/guarding negative goodson sign. obese ASSESSMENT AND PLAN: 31yo F wtih no PMH presented to the ER and was admitted for further evalution of their emergent condition 1. Transaminities- evidence of cholelithasis but no cholecystitis. MRCP shows no retained stone in CBD. elevation can be due to cholestasis of as 5months . plan for HIDA scan tomorrow. will need to pump and dump for 6 hours after receiving radioactive isotope. if negative plan will be for EGD as outpatient. if shows biliary dyskinesia plan with be for cholecystectomy. pt does state she is not interested in surgery at this time and will like to postpone. cont ppi, reglan 2. DVT ppx- eam
[2016-08-28] MEDS: METOCLOPRAMIDE HCL INJECTION 10 MG/2 ML VIAL IVPB SCH (18:53)
[2016-08-28] MEDS: SODIUM CHLORIDE 1,000 ML IV SCH (18:55)
--- NOTE | 2016-08-28 19:02 | PN ---
Progress Note (short form) - Note Progress Note: Surgery Patient denies pain today MRCP negative for cbd stone Abd: soft A: cholelithiasis, symptomatic Rec: await HIDA scan if above is negative, may not need cholecystectomy at this time. further GI work-up for epigastric pain
[2016-08-28] MEDS: PANTOPRAZOLE SODIUM 100 ML IVPB SCH (21:10)
[2016-08-29] MEDS: METOCLOPRAMIDE HCL INJECTION 10 MG/2 ML VIAL IVPB SCH ×3 (02:34→17:58)
[2016-08-29] MEDS: SODIUM CHLORIDE 1,000 ML IV SCH (05:08)
[2016-08-29] MEDS ORDERED: PROPOFOL 20 ML ONE ×2 (07:41)
[2016-08-29] MEDS ORDERED: LIDOCAINE HCL/PF 2% SDV 5ML VIAL ONE (07:41)
--- NOTE | 2016-08-29 08:40 | PN ---
Progress Note (short form) - Note Progress Note: ADDENDUM: S/P EGD Trachealization of esophagus noted and biopsies taken to r/o eosinophilic esophagitis. Otherwise normal EGD No etiology of pain found For HIDA Surgery pending results.
[2016-08-29 08:45] LABS: BASOPHIL 0.6 % (0-2.0); MCH 29.2 pg (25.7-33.7); MCHC 32.7 g/dl (32.0-36.0); MEAN CELL VOLUME 89.1 fl (80-96); MEAN PLT VOLUME 8.6 fl (7.5-11.1); NEUTROPHILS 59.5 % (42.8-82.8); PLATELET COUNT 268 K/MM3 (134-434); RDW 13.1 % (11.6-15.6); WHITE BLOOD COUNT 5.6 K/mm3 (4.0-10.0)
[2016-08-29 09:02] LABS: ALBUMIN 3.6 g/dl (3.4-5.0); ANION GAP 12 (8-16); CALCIUM 8.5 mg/dL (8.5-10.1); CO2 22 mmol/L (21-32); CREATININE 0.6 mg/dL (0.55-1.02); GLUCOSE,RANDOM 51 mg/dL (74-106); SGOT/AST 34 U/L (15-37); SGPT/ALT 127 U/L (12-78)
[2016-08-29 09:04] LABS: ALK PHOS 128 U/L (45-117); BILIRUBIN,TOTAL 0.6 mg/dL (0.2-1.0); TOT PROT 7.3 g/dl (6.4-8.2)
[2016-08-29] MEDS: PANTOPRAZOLE SODIUM 100 ML IVPB SCH (12:11)
--- NOTE | 2016-08-29 14:55 | MSN ---
Progress Note (short form) - Note Progress Note: Saw patient this AM. Patient did not complain of any new events overnight. Patient has not had epigastric or abdominal pain since admission. Patient remains NPO but has been having ice chips due to mouth being dry. Patient stated that she didn't think her epigastric pain was due to biliary colic. EGD was done this AM to r/o and was normal. HIDA was also done to get better picture of gallbladder and ducts and demonstrate if CBD and ampulla are patent. Results are still pending. Patient's ALT, AST, and Alk Phos have been trending down since admission. Continue to monitor patient's vitals and labs. Current Medications Generic Name Dose Route Start Last Admin Trade Name Freq PRN Reason Stop Dose Admin Pantoprazole Sodium 100 mls @ 200 mls/hr 08/28/16 22:00 08/29/16 12:11 Protonix 40mg Ivpb (Pre-Docked) IVPB 200 mls/hr BID SINAN Administration Sodium Chloride 1,000 mls @ 125 mls/hr 08/28/16 18:45 08/29/16 05:08 Normal Saline - IV 08/31/16 02:44 125 mls/hr ASDIR SINAN Administration Metoclopramide HCl 10 mg 08/28/16 18:15 08/29/16 12:14 Reglan Injection - IVPB Not Given Q8H SINAN Vital Signs Period Temp Pulse Resp BP Sys/Deluca Pulse Ox Last 24 Hr 97.5 F-98.4 F 61-113 14-19 109-143/53-87 98-100 PHYSICAL EXAM GENERAL: Patient alert and oriented. In no apparent distress EYES: PERRLA, EOM intact, conjunctiva clear bilaterally ENT: Ears normal, nares patent, no signs of trauma NECK: Trachea midline, no JVD HEART: Regular rate, rhythm. +S1, S2, no murmurs, gallops LUNGS: Equal breath sounds bilaterally, no wheezes, rhonchi ABDOMEN: Soft, nontender, normoactive bowel sounds in all four quadrants. No pain on light or deep palpation. Colbert's negative MSK: 5/5 Muscle Strength, all four extremities NEURO: labor delivery rn intact, normal speech, gait not observed EXTREMITIES: 2+ pulses bilaterally, warm, nontender, well perfused Laboratory Results - last 24 hr 08/29/16 08/29/16 06:15 06:15 WBC 5.6 RBC 4.28 Hgb 12.5 Hct 38.2 MCV 89.1 MCHC 32.7 RDW 13.1 Plt Count 268 MPV 8.6 Neutrophils % 59.5 Lymphocytes % 31.7 Monocytes % 6.2 Eosinophils % 2.0 Basophils % 0.6 Sodium 140 Potassium 4.4 Chloride 106 Carbon Dioxide 22 Anion Gap 12 BUN 7 Creatinine 0.6 Creat Clearance w eGFR > 60 Random Glucose 51 L D Calcium 8.5 Total Bilirubin 0.6 D AST 34 D ALT 127 H D Alkaline Phosphatase 128 H Total Protein 7.3 Albumin 3.6 IMAGING Right upper quadrant abdomen ultrasound (08/27/16): Multiple small gallbladder calculi are identified. The gallbladder otherwise appears unremarkable. No pericholecystic fluid is seen. Early acute cholecystitis may not be demonstrable on sonography or CT. The common bile duct diameter appears w/i normal limits measuring 0.4 cm. No gross intraductal calculus is noted. MRCP (08/28/16): Gallbladder is distended containing gallstones with no wall thickening or surrounding edema. Axial MRCP results are markedly limited due to respiratory motion. CBD is normal in caliber with no intrahepatic biliary ductal dilation and no gross filling defect seen on the coronal MRCP images however evaluation of the distal CBD in the region of the ampulla is limited in this exam. ASSESSMENT AND PLAN 31 y/o F with no PMHx presenting to the ER with abdominal and nausea starting three days ago. Admitted for abdominal pain secondary to cholelithiasis 1. Abdominal pain secondary to cholelithiasis -NPO -IV Fluids @ 100 cc/hr -IV Ofirmev discontinued -Protonix 40 mg IV qd -GI, surgery on board -MRCP showed gallbladder with stones, CBD was normal in caliber, no dilation, however ampulla, distal CBD was limited due to poor respiratory motion -HIDA Scan to be done 2. Transamnitis -AST down from 78 to 34 -ALT down from 174 to 127 -Alkaline Phosphatase down from 153 to 128 -Secondary to possible choledocolithiasis -MRCP negative -HIDA scan results pending -GI f/u 3. FEN -NPO -IV Fluids @ 100 cc/hr -lytes wnl 4. DVT Prophylaxis -SCDs Dispo: Monitor in med/surg
[2016-08-29 16:22] VITALS: BP 90/61; PULSE 71; TEMP 97.9
--- NOTE | 2016-08-29 16:35 | DS ---
Physical Exam: SUBJECTIVE: Patient seen and examined, tolerated diet, no episodes of nausea, vomiting, pain. OBJECTIVE: Vital Signs Period Temp Pulse Resp BP Sys/Deluca Pulse Ox Last 24 Hr 97.5 F-98.4 F 61-113 14-19 90-133/53-87 98-100 PHYSICAL EXAM GENERAL: The patient is awake, alert, and fully oriented, in no acute distress. HEAD: Normal with no signs of trauma. EYES: PERRL, extraocular movements intact, sclera anicteric, conjunctiva clear. ENT: Ears normal, nares patent, oropharynx clear without exudates, moist mucous membranes. NECK: Trachea midline, full range of motion, supple. LUNGS: Breath sounds equal, clear to auscultation bilaterally, no wheezes, no crackles, no accessory muscle use. HEART: Regular rate and rhythm, S1, S2 without murmur, rub or gallop. ABDOMEN: Soft, nontender, nondistended, normoactive bowel sounds, no guarding, no rebound, no hepatosplenomegaly, no masses. EXTREMITIES: 2+ pulses, warm, well-perfused, no edema. NEUROLOGICAL: Cranial nerves II through XII grossly intact. Normal speech, gait not observed. PSYCH: Normal mood, normal affect. SKIN: Warm, dry, normal turgor, no rashes or lesions noted. LABS Laboratory Results - last 24 hr 08/29/16 08/29/16 06:15 06:15 WBC 5.6 RBC 4.28 Hgb 12.5 Hct 38.2 MCV 89.1 MCHC 32.7 RDW 13.1 Plt Count 268 MPV 8.6 Neutrophils % 59.5 Lymphocytes % 31.7 Monocytes % 6.2 Eosinophils % 2.0 Basophils % 0.6 Sodium 140 Potassium 4.4 Chloride 106 Carbon Dioxide 22 Anion Gap 12 BUN 7 Creatinine 0.6 Creat Clearance w eGFR > 60 Random Glucose 51 L D Calcium 8.5 Total Bilirubin 0.6 D AST 34 D ALT 127 H D Alkaline Phosphatase 128 H Total Protein 7.3 Albumin 3.6 HOSPITAL COURSE: Date of Admission:08/27/16 Date of Discharge: 08/29/16 Mrs. Moeller is a 31 year old female PMHx gallstones; s/p C sec 5 months ago, currently breast feeding who presents with nausea, vomiting and epigastric pain. Lab work evident for transaminitis. She was managed with IVF, pain, control, and protonix, kept npo. Abdominal ultrasound evident for cholelithiasis , no cholecystitis at present. MRCP was negative as well for stones in duct. HIDA scan negative. Surgeon and counter clerk was contacted, suggest cholecystectomy as outpatient. Minutes to complete discharge: 35 Discharge Summary Reason For Visit: ELEVATED LIVER FUNCTION TESTS. CHOLELITHIASIS Current Active Problems Abdominal pain (Acute) Cholelithiasis (Acute) Elevated LFTs (Acute) Epigastric pain (Acute) Condition: Stable - Instructions Diet, Activity, Other Instructions: Mrs Moeller, you have been diagnosed with gallstones. We would like you to follow up with your counter clerk for further monitoring and plans to remove your gallbladder in the near future. If you experience any worsening of symptoms, including nausea, vomiting, fever, please return to the emergency room Referrals: Brannon Hurst MD [Primary Care Provider] - Moncho Agrawal MD [Staff Physician] - Disposition: HOME - Home Medications Comprehensive Discharge Medication List: Ambulatory Orders [id number]/Iron Fumarate/FA/Dss [ 19 Tablet] 1 each PO DAILY 08/28/16 This patient is new to me today: No Emergency Visit: Yes ED Registration Date: 08/27/16 Care time: The patient presented to the Emergency Department on the above date and was hospitalized for further evaluation of their emergent condition. Critical Care patient: No - Discharge Referral Referred to [facility] No
--- NOTE | 2016-08-29 16:59 | PN ---
Teaching Attending Note Name of Resident: Darcie Antoine ATTENDING PHYSICIAN STATEMENT I saw and evaluated the patient. I reviewed the resident's note and discussed the case with the resident. I agree with the resident's findings and plan as documented. SUBJECTIVE:currently asymptomatic. no repeated episodes of abdominal pain. tolerated dinner last night. denies CP, SOB,fever, chills, N/V/C/D OBJECTIVE: Last Vital Signs Temp Pulse Resp BP Pulse Ox 97.9 F 71 16 90/61 98 08/29/16 16:20 08/29/16 16:20 08/29/16 16:20 08/29/16 16:20 08/29/16 09:00 General Abdomen soft NT/ND no rebound/guarding negative goodson sign. obese ASSESSMENT AND PLAN: 31yo F wtih no PMH presented to the ER and was admitted for further evalution of their emergent condition 1. Transaminities- evidence of cholelithasis but no cholecystitis. MRCP shows no retained stone in CBD. HIDA normal. EGD showing trachealization of the esophagus. will need to f/u bx with GI. will likely require elective cholecystectomy in the future. 2. DVT ppx- eam 3. d/c home
--- NOTE | 2016-09-01 10:59 | PATH ---
Surgical Pathology Report Patient Name: KHAI ARORA [facility]. Rec. #: [id number] /Age/Gender: 1985 (Age: 31) / F Account: [id number] Location: [facility] MED/SURG Taken: 08/29/2016 Received: 08/29/2016 Reported: 09/01/2016 Physicians: Moncho Agrawal M.D. Specimen(s) Received A: BX ANTRUM B: BX MID ESOPHAGUS Clinical History Abdominal pain Normal EGD Final Diagnosis A. STOMACH, ANTRUM, BIOPSY: GASTRIC ANTRAL MUCOSA WITH MILD TO MODERATE CHRONIC GASTRITIS AND MILD REACTIVE GASTROPATHY. IMMUNOSTAIN FOR H. PYLORI IS NEGATIVE FOR ORGANISMS. B. ESOPHAGUS, MID, BIOPSY: SQUAMOUS EPITHELIUM WITH CHRONIC INFLAMMATION IN AND REFLUX TYPE CHANGES NO EVIDENCE OF EOSINOPHILIC ESOPHAGITIS. Electronically Signed Hiram Astorga M.D. Gross Description A. Received in formalin, labeled "biopsy antrum" is a esquivel, irregular portion of soft tissue measuring 0.5 cm in greatest dimension. The specimen is submitted in toto in one cassette. B. Received in formalin, labeled "biopsy midesophagus" is a esquivel, irregular portion of soft tissue measuring 0.2 cm in greatest dimension. The specimen is submitted in toto in one cassette. 08/29/201608/29/2016
== END 2016-08-29 18:08 | disposition home or self-care (01) | DRG 446 ==
LOC: JER 15:43 → JERBED 20:43 → J8W 08-28 16:46
PROVIDERS: ADMIT Internal Medicine; ATTEND Internal Medicine
PROC: 0DB58ZX Excision of Esophagus, Via Natural or Artificial Opening Endoscopic, Diagnostic (ICD-10-PCS; 2016-08-29)
PROC: 0DB68ZX Excision of Stomach, Via Natural or Artificial Opening Endoscopic, Diagnostic (ICD-10-PCS; principal; 2016-08-29 07:30)
DX: K80.20 Calculus of gallbladder without cholecystitis without obstruction (principal); R74.0 Nonspecific elevation of levels of transaminase and lactic acid dehydrogenase [LDH]; K29.50 Unspecified chronic gastritis without bleeding
CPT/HCPCS: 36415; 74181-TC; 76705-TC; 78227-TC; 80053; 81003; 82550; 82553; 83690; 84484; 84703; 85025; 85610; 85730; 86850; 86900; 86901; 87086; 88305-TC; 99284-25; A9537